=== PATIENT | male | born 1985 | race Caucasian/White ===

== ENCOUNTER 2019-10-24 19:01 | Emergency (ER) | payer OTHER ==
[~2019-10-24] VITALS: Ht 180.3 cm; Wt 90.7 kg
[~2019-10-24 19:01] MED LIST: ULTRAM50 MG PO; VISTARIL25 MG PO
[2019-10-24] MEDS ORDERED: FOLIC ACID0.8 M1 (19:07)
[2019-10-24] MEDS ORDERED: PEPCID AC20 MG PO (22:12)
[2019-10-24] MEDS ORDERED: CIPRO500 MG PO (22:12)
== END 2019-10-24 22:37 | disposition home or self-care (01) ==
LOC: ER 19:01
DX: K52.9 Noninfective gastroenteritis and colitis, unspecified (principal)

== ENCOUNTER 2024-08-18 17:40 | Inpatient (IN) | payer OTHER ==
[~2024-08-18] VITALS: Ht 180.3 cm; Wt 117.9 kg
[~2024-08-18 17:40] MED LIST changes: +CIPRO500 MG PO; +FOLIC ACID0.8 M1; +PEPCID AC20 MG PO
--- NOTE | 2024-08-18 17:57 | NUR ---
SE RECIBE PTE ALERTA Y ORIENTADO EL CUAL REFIERE VENIR POR MALESTAR GENERAL, TOS, FIEBRE Y DOLOR CORPORAL. SE MIDEN S/V A PTE Y SE UBICA.
--- NOTE | 2024-08-18 21:39 | NUR ---
SE ORIENTA PTE,REFIERE ENTENDER. SE COLECTAN MUESTRAS DE LAB
[2024-08-18 22:10] LABS: HEMATOCRIT 37.7 % (39.0-48.0); HEMOGLOBIN 13.3 g/dL (13-16.00); MEAN CELL VOLUME 89.9 fL (80.0-100.00); MEAN CORPUSCULAR HEMOGLOBIN 31.8 pg (27.00-32.0); MEAN CORPUSCULAR HGB CONC 35.3 g/dl (32.0-36.0); RED BLOOD COUNT 4.19 M/uL (4.00-6.00); RED CELL DISTRIBUTION WIDTH 14.2 % (11.5-14.5)
[2024-08-18 22:22] LABS: PLATELET COUNT 66 K/uL (150-450)
[2024-08-18] MEDS ORDERED: KETOROLAC TROMETHAMINE 60 MG VIAL IM ONE (22:45)
[2024-08-18] MEDS ORDERED: 0.9 % SODIUM CHLORIDE 1,000 ML IV STA (23:31)
[2024-08-19] MEDS ORDERED: ACETAMINOPHEN 500 MG GEL..CAP PO PRN (00:15)
[2024-08-19] MEDS ORDERED: ONDANSETRON HCL 4 MG in 0.9 % SODIUM CHLORIDE 50 ML IV PRN (00:15)
[2024-08-19] MEDS ORDERED: 0.9 % SODIUM CHLORIDE 1,000 ML IV SCH (00:15)
[2024-08-19 01:11] LABS: ALBUMIN 3.5 gm/dL (3.4-5.0); BILIRUBIN TOTAL 2.87 mg/dL (0.3-1.2); CALCIUM 8.2 mg/dL (8.5-10.1); CREATININE SERUM 1.07 mg/dL (0.70-1.30); GFR 76.16; POTASSIUM 3.82 mEq/L (3.5-5.1); TOTAL PROTEIN 6.5 gm/dL (6.4-8.2)
[2024-08-19] MEDS ORDERED: ACETAMINOPHEN 500 MG GEL..CAP PO ONE (01:25)
[2024-08-19 01:34] VITALS: BP 105/56; O2SAT 98
[2024-08-19 02:05] LABS: PLT IN CITRATE 47 K/uL (150-450)
[2024-08-19 02:35] LABS: INR 1.4; PROTHROMBIN TIME 14.9 SECONDS (9.0-11.5)
[2024-08-19 02:36] LABS: PARTIAL THROMBOPLASTIN TIME 45.8 SECONDS (22.0-34.0)
[2024-08-19 02:37] LABS: MANUAL PLATELET COUNT 54
[2024-08-19 03:42] LABS: PH,URINE 5.5 (5.0-8.0); URINE APPEARANCE Clear; URINE BILIRRUBIN Moderate (NEGATIVE); URINE BLOOD Negative; URINE COLOR Dark Yellow; URINE GLUCOSE Negative (NEGATIVE); URINE KETONE Trace (NEGATIVE); URINE LEUKOCYTE Trace; URINE NITRATE Positive; URINE PROTEIN 30 (NEGATIVE)
[2024-08-19 03:47] LABS: URINE BACTERIA 26.9 uL (0.0-1933); URINE CAST 11.34 uL (0.0-1.40); URINE EPITHELIAL CELLS 44.8 uL (0.0-38.8); URINE RBC 10.7 uL (0.0-20.8); URINE WBC 9.1 uL (0.0-23.2)
[2024-08-19 05:00] VITALS: BP 112/78; O2SAT 96
[2024-08-19 08:41] VITALS: BP 108/74; O2SAT 96
[2024-08-19] MEDS ORDERED: PANTOPRAZOLE SODIUM 40 MG/VIAL VIAL IV SCH (09:00)
[2024-08-19 17:33] VITALS: BP 122/77; O2SAT 98
[2024-08-20 02:21] VITALS: BP 115/70; O2SAT 96
[2024-08-20 08:03] LABS: HEMOGLOBIN 13.5 g/dL (13-16.00); MEAN CELL VOLUME 91.1 fL (80.0-100.00); MEAN CORPUSCULAR HEMOGLOBIN 33.2 pg (27.00-32.0); MEAN CORPUSCULAR HGB CONC 36.4 g/dl (32.0-36.0); RED BLOOD COUNT 4.06 M/uL (4.00-6.00); RED CELL DISTRIBUTION WIDTH 14.2 % (11.5-14.5)
[2024-08-20 08:22] LABS: HEMATOCRIT 33.5 % (39.0-48.0); HEMOGLOBIN 12.4 g/dL (13-16.00); MEAN CELL VOLUME 89.1 fL (80.0-100.00); MEAN CORPUSCULAR HEMOGLOBIN 33.1 pg (27.00-32.0); MEAN CORPUSCULAR HGB CONC 37.2 g/dl (32.0-36.0); RED BLOOD COUNT 3.75 M/uL (4.00-6.00)
[2024-08-20 09:34] LABS: PLATELET COUNT 38 K/uL (150-450)
[2024-08-20 09:37] LABS: ERYTHROCYTE SEDIMENTATION RATE 28 mm/hr
[2024-08-20 09:39] VITALS: BP 120/80; O2SAT 99
[2024-08-20 10:35] LABS: PLT IN CITRATE 18 K/uL (150-450)
[2024-08-20 11:10] LABS: PLATELET COUNT 16 K/uL (150-450)
[2024-08-20 14:48] LABS: BILIRUBIN TOTAL 2.51 mg/dL (0.3-1.2); CALCIUM 8.4 mg/dL (8.5-10.1); CREATININE SERUM 0.87 mg/dL (0.70-1.30); GFR 96.7; GLOBULINA 3.6 G/DL (2.4-3.5); TOTAL PROTEIN 6.6 gm/dL (6.4-8.2)
[2024-08-20 14:49] LABS: POTASSIUM 4.12 mEq/L (3.5-5.1)
[2024-08-20 16:00] VITALS: BP 113/70; O2SAT 96
[2024-08-21 03:07] VITALS: BP 112/71; O2SAT 99
[2024-08-21 08:17] LABS: HEMATOCRIT 35.7 % (39.0-48.0); HEMOGLOBIN 13.1 g/dL (13-16.00); MEAN CELL VOLUME 87.7 fL (80.0-100.00); MEAN CORPUSCULAR HEMOGLOBIN 32.1 pg (27.00-32.0); MEAN CORPUSCULAR HGB CONC 36.6 g/dl (32.0-36.0); RED BLOOD COUNT 4.07 M/uL (4.00-6.00); RED CELL DISTRIBUTION WIDTH 14.1 % (11.5-14.5)
[2024-08-21 08:37] LABS: PLATELET COUNT 45 K/uL (150-450)
[2024-08-21 09:48] VITALS: BP 113/58; O2SAT 98
[2024-08-21] MEDS ORDERED: METRONIDAZOLE/SODIUM CHLORIDE 100 ML IV SCH (13:00)
[2024-08-21 16:20] LABS: HEMATOCRIT 37.8 % (39.0-48.0); HEMOGLOBIN 13.5 g/dL (13-16.00); MEAN CELL VOLUME 88.4 fL (80.0-100.00); MEAN CORPUSCULAR HEMOGLOBIN 31.6 pg (27.00-32.0); MEAN CORPUSCULAR HGB CONC 35.8 g/dl (32.0-36.0); RED BLOOD COUNT 4.28 M/uL (4.00-6.00)
[2024-08-21] MEDS ORDERED: CEFTRIAXONE SODIUM 2,000 MG in 0.9 % SODIUM CHLORIDE 100 ML IV SCH (17:00)
[2024-08-21 17:37] LABS: CORRECTED WBC 11.66 K/mm3
[2024-08-21 17:39] LABS: PLATELET COUNT 52 K/uL (150-450)
[2024-08-22 01:20] VITALS: BP 143/83
[2024-08-22 07:13] LABS: HEMATOCRIT 34.7 % (39.0-48.0); HEMOGLOBIN 12.5 g/dL (13-16.00); MEAN CELL VOLUME 88.9 fL (80.0-100.00); MEAN CORPUSCULAR HGB CONC 36.1 g/dl (32.0-36.0); RED BLOOD COUNT 3.91 M/uL (4.00-6.00); RED CELL DISTRIBUTION WIDTH 14.1 % (11.5-14.5)
[2024-08-22 09:01] VITALS: BP 136/94; O2SAT 94
[2024-08-22 09:19] LABS: PLATELET COUNT 59 K/uL (150-450)
[2024-08-22 16:41] VITALS: BP 129/90; O2SAT 99
[2024-08-23 00:49] VITALS: BP 120/76; O2SAT 96
[2024-08-23 06:47] LABS: HEMATOCRIT 34.9 % (39.0-48.0); HEMOGLOBIN 12.3 g/dL (13-16.00); MEAN CELL VOLUME 90.1 fL (80.0-100.00); MEAN CORPUSCULAR HEMOGLOBIN 31.9 pg (27.00-32.0); MEAN CORPUSCULAR HGB CONC 35.4 g/dl (32.0-36.0); RED BLOOD COUNT 3.87 M/uL (4.00-6.00); RED CELL DISTRIBUTION WIDTH 14.2 % (11.5-14.5)
[2024-08-23 06:51] LABS: ALBUMIN 2.8 gm/dL (3.4-5.0); BILIRUBIN TOTAL 1.12 mg/dL (0.3-1.2); CALCIUM 8.6 mg/dL (8.5-10.1); CREATININE SERUM 0.76 mg/dL (0.70-1.30); GFR 113.02; GLOBULINA 4.5 G/DL (2.4-3.5); POTASSIUM 4.29 mEq/L (3.5-5.1); TOTAL PROTEIN 7.3 gm/dL (6.4-8.2)
[2024-08-23 08:20] LABS: PLATELET COUNT 91 K/uL (150-450)
[2024-08-23 08:56] VITALS: BP 120/81; BP 125/75; O2SAT 96
== END 2024-08-23 10:58 | disposition home or self-care (01) | DRG 866 ==
LOC: ER 17:42 → MEDI 08-19 00:12
PROVIDERS: General Practice; Internal Medicine; Preventive Medicine Public Health & General Preventive Medicine; Student in an Organized Health Care Education/Training Program; ADMIT Student in an Organized Health Care Education/Training Program; ATTEND Student in an Organized Health Care Education/Training Program
PROC: BW40ZZZ Ultrasonography of Abdomen (ICD-10-PCS; principal; 2024-08-20)
DX: A90 Dengue fever [classical dengue] (principal); D72.829 Elevated white blood cell count, unspecified; D69.6 Thrombocytopenia, unspecified; K81.9 Cholecystitis, unspecified